=== PATIENT | male | born 1950 | race Two or more races ===

== ENCOUNTER → 2018-04-18 | Day surgery (SDC) | payer OTHER ==
[~2018-04-18] MED LIST: ENALAPRIL MALEA10 MG PO; FLOVENT DISKU100 MCG IH; GLUCOTROL10 MG PO; JANUVIA100 MG PO; OSTERA TABLET1 EACH PO; PERCOCET 5-3251 EACH PO; PROVENT1 EACH; SINGULAIR10 MG PO; UROXATRAL10 MG PO; VIT B12 PO
== END | disposition home or self-care (01) ==
LOC: ADM 04-16 12:30 → CIR.AMB 07:28
DX: D35.1 Benign neoplasm of parathyroid gland (principal)